=== PATIENT | male | born 1955 | race African-American/Black ===

== ENCOUNTER 2021-01-13 14:24 | Emergency (ER) | payer OTHER ==
[~2021-01-13] VITALS: Ht 172.7 cm; Wt 72.6 kg
[2021-01-13] MEDS ORDERED: MEDROLDOSEPACK PO (17:33)
[2021-01-13] MEDS ORDERED: NAPROSYN500 MG PO (17:33)
[2021-01-13 17:51] VITALS: BP 149/84
== END 2021-01-13 17:51 | disposition home or self-care (01) ==
LOC: M.ERS 14:24
DX: M19.012 Primary osteoarthritis, left shoulder (principal); M19.011 Primary osteoarthritis, right shoulder; M47.812 Spondylosis without myelopathy or radiculopathy, cervical region; R60.9 Edema, unspecified

== ENCOUNTER 2021-02-15 09:30 | Emergency (ER) | payer OTHER ==
[~2021-02-15] VITALS: Ht 170.2 cm; Wt 77.1 kg
[~2021-02-15 09:30] MED LIST: MEDROLDOSEPACK PO; NAPROSYN500 MG PO
[2021-02-15] MEDS ORDERED: METHOCARBAMOL500 M2 PO (10:15)
[2021-02-15] MEDS ORDERED: NAPROSYN500 M1 PO (10:15)
[2021-02-15] MEDS ORDERED: MEDROLDOSEPACK PO (10:15)
[2021-02-15 10:35] VITALS: BP 134/72
== END 2021-02-15 10:36 | disposition home or self-care (01) ==
LOC: M.ERS 09:30
DX: M54.2 Cervicalgia (principal); M25.511 Pain in right shoulder; M25.512 Pain in left shoulder; M19.90 Unspecified osteoarthritis, unspecified site

== ENCOUNTER 2021-04-02 14:00 | Emergency (ER) | payer OTHER ==
[~2021-04-02] VITALS: Ht 170.2 cm; Wt 69.8 kg
[~2021-04-02 14:00] MED LIST changes: +METHOCARBAMOL500 M2 PO; +NAPROSYN500 M1 PO
[2021-04-02] MEDS ORDERED: NAPROSYN500 MG PO (14:38)
[2021-04-02] MEDS ORDERED: FLEXERIL PO (14:38)
[2021-04-02 14:46] VITALS: BP 139/95
== END 2021-04-02 14:47 | disposition home or self-care (01) ==
LOC: M.ERS 14:00
DX: M54.2 Cervicalgia (principal); M79.601 Pain in right arm; M79.602 Pain in left arm; M19.90 Unspecified osteoarthritis, unspecified site; F17.210 Nicotine dependence, cigarettes, uncomplicated; Z79.899 Other long term (current) drug therapy